=== PATIENT | male | born 1975 | race African-American/Black ===

== ENCOUNTER 2021-09-02 03:54 | Emergency (ER) | payer OTHER ==
[~2021-09-02] VITALS: Ht 172.7 cm; Wt 108.9 kg
[~2021-09-02 03:54] MED LIST: AZITHROMYCIN 2250 MG PO; ERYTHROMYCIN E3.5 G1 OP; NOHOMEMEDICATIONS; TRIAMCINOLONE 080 G3 TOP
[2021-09-02 04:43] LABS: URINE BILIRUBIN NEGATIVE (Negative); URINE BLOOD NEGATIVE (Negative); URINE CLARITY CLEAR; URINE COLOR YELLOW; URINE GLUCOSE-RANDOM* NEGATIVE (Negative); URINE KETONES NEGATIVE (Negative); URINE LEUKOCYTES-REFLEX NEGATIVE (Negative); URINE NITRITE-REFLEX NEGATIVE (Negative); URINE PROTEIN (DIPSTICK) NEGATIVE (Negative); URINE SPECIFIC GRAVITY >= 1.030 (1.005-1.035)
[2021-09-02 05:11] LABS: ABSOLUTE NEUTROPHILS 3.5 thou/uL (1.4-8.2); BASOPHILS 0.7 % (0.0-2.0); EOSINOPHILS 3.2 % (0.0-3.0); HEMATOCRIT 44.2 % (42.0-52.0); HEMOGLOBIN 14.7 gm/dL (14.0-18.0); LYMPHOCYTES 31.6 % (24.0-44.0); MCH 32.8 pg (26.0-34.0); MCHC 33.3 g/dL (28.0-37.0); MCV 98.6 fL (80.0-100.0); MONOCYTES 6.3 % (1.0-8.0); PLATELET COUNT 188 thou/uL (150-400); POLYS 58.2 % (36.0-66.0); RBC 4.49 mil/uL (4.50-6.00); RDW 12.6 % (10.5-14.5); WBC 6.1 thou/uL (4.0-11.0)
[2021-09-02 05:19] LABS: CALCIUM 9.1 mg/dL (8.5-10.1); POTASSIUM 3.8 mmol/L (3.5-5.1)
[2021-09-02 05:29] LABS: ALBUMIN 3.9 g/dL (3.4-5.0); TOTAL BILIRUBIN 0.8 mg/dL (0.2-1.0)
[2021-09-02] MEDS ORDERED: PEPCID20 MG PO (05:58)
[2021-09-02 06:13] VITALS: BP 123/75
--- NOTE | 2021-09-02 08:17 | EKG ---
[place] [address] [facility] [place] [address] ELECTROCARDIOGRAM REPORT Name: MARIZOL SELLERS Room #: [facility]#: [id number] Admission: 09/02/21 Attend Phys: Discharge: 09/02/21 Date of : 79 Report #: [id number] [facility] ED Test Date: 2021-09-02 Test Time: 04:30:20 Pat Name: MARIZOL SELLERS Department: Room: Gender: Culinary Art Teacher: CAT : 1975 Requested By: Donovan Watkins Order Number: [id number] MD: Alexis Diallo Measurements Intervals [place] Rate: 69 P: 53 TN: 173 QRS: 33 QRSD: 90 T: 44 QT: 372 QTc: 399 Interpretive Statements Sinus rhythm Nonspecific ST and T wave abnormality No previous ECG available for comparison Electronically Signed On 09-02-2021 8:17:41 [employer] by Alexis Diallo [email or web address] <ELECTRONICALLY SIGNED> By: Alexis Diallo MD, [facility] 09/02/21 0817 0430 0430 Alexis Diallo MD, FACC /EPI
== END 2021-09-02 06:13 | disposition home or self-care (01) ==
LOC: ER 03:54
PROVIDERS: Emergency Medicine
DX: R10.13 Epigastric pain (principal); R10.11 Right upper quadrant pain; F12.90 Cannabis use, unspecified, uncomplicated; Z79.899 Other long term (current) drug therapy; Z88.0 Allergy status to penicillin